=== PATIENT | female | born 1960 | race Caucasian/White ===

== ENCOUNTER 2016-07-17 08:45 | Day surgery (SDC) | payer BC ==
[~2016-07-17 08:45] MED LIST: Lactated Ringers 1,000 ML IV SCH
[2016-07-17] MEDS ORDERED: Citric Acid/Sodium Citrate Solution 30 ML Cup ONE (09:57)
[2016-07-17] MEDS ORDERED: Propofol 200 MG/20 ML SDV ONE (10:00)
[2016-07-17] MEDS ORDERED: fentaNYL 100 MCG/2 ML SDV ONE (10:00)
[2016-07-17] MEDS ORDERED: Citric Acid/Sodium Citrate Solution 30 ML Cup PO ONE (10:04)
[2016-07-17 11:58] VITALS: BP 122/66
--- NOTE | 2016-07-17 16:12 | OR ---
REFERRING DOCTOR: Dr. Maryann Whiting. PREOPERATIVE DIAGNOSIS: Severe gastroesophageal reflux disease symptoms. POSTOPERATIVE DIAGNOSIS: Hiatal hernia without active gastroesophageal reflux disease. No significant gastritis. PROCEDURE PROPOSED: Upper gastrointestinal panendoscopy with antral biopsies. PROCEDURE DONE: Upper gastrointestinal panendoscopy with antral biopsies. INDICATION: This is a 56-year-old female, bothered for several years now with GERD symptoms that seem to be worsening. She cannot lie down without things coming up into her throat. She is having some chronic cough issues. She is presently taking Prilosec twice a day with some relief of symptoms and she has never been gastroscoped, but was felt that she should be evaluated. TECHNIQUE: The patient was placed in left lateral decubitus position. She was sedated with propofol per [employer] AIDE and the flexible video gastroscope was then passed transorally and under visualization advanced well into the duodenum. The duodenum and duodenal bulb was unremarkable. The antrum and body of the stomach looked quite healthy. She did have about a 3 to 4 cm hiatal hernia with the GE junction was well demarcated without signs of active GERD. There was no signs of any stenosis or Schatzki's ring, and the remainder of esophagus was normal. She tolerated the procedure well. FINAL IMPRESSION: 3 to 4 cm hiatal hernia without active gastroesophageal reflux disease. PLAN: This seems like her symptoms are out of proportion to the physical findings. I feel that she should be referred on to GI for pH monitoring and pressure manometry testing to determine if she has a malfunction of the esophagus and to see if she would benefit with a Jorge A fundoplication. SCM: 07/17/2016 10:50:12 MODL: 07/17/2016 15:15:17 /[id number]
== END 2016-07-17 12:00 | disposition home or self-care (01) ==
LOC: VM.SDS 08:45
PROVIDERS: ATTEND Surgery
DX: K29.00 Acute gastritis without bleeding (principal); K44.9 Diaphragmatic hernia without obstruction or gangrene; K21.9 Gastro-esophageal reflux disease without esophagitis; I10 Essential (primary) hypertension; G47.33 Obstructive sleep apnea (adult) (pediatric); E66.9 Obesity, unspecified; E55.9 Vitamin D deficiency, unspecified; E78.5 Hyperlipidemia, unspecified; Z88.8 Allergy status to other drugs, medicaments and biological substances; Z79.899 Other long term (current) drug therapy; F43.23 Adjustment disorder with mixed anxiety and depressed mood
CPT/HCPCS: 43239; A9270; J2704; J3010; J7120

== ENCOUNTER 2022-03-29 10:21 | Day surgery (SDC) | payer BC ==
[~2022-03-29 10:21] MED LIST changes: +Citric Acid/Sodium Citrate Solution 30 ML Cup PO ONE
[2022-03-29] MEDS ORDERED: fentaNYL 100 MCG/2 ML SDV ONE (10:41)
[2022-03-29] MEDS ORDERED: Propofol 200 MG/20 ML SDV ONE ×2 (10:41→11:45)
[2022-03-29 12:39] VITALS: BP 136/76; PULSE 58
== END 2022-03-29 13:20 | disposition home or self-care (01) ==
LOC: VM.SDS 10:21
PROVIDERS: ATTEND Family Medicine
DX: Z12.11 Encounter for screening for malignant neoplasm of colon (principal); K57.30 Diverticulosis of large intestine without perforation or abscess without bleeding; K64.8 Other hemorrhoids; I10 Essential (primary) hypertension; E78.00 Pure hypercholesterolemia, unspecified; E55.9 Vitamin D deficiency, unspecified; K21.9 Gastro-esophageal reflux disease without esophagitis; F41.9 Anxiety disorder, unspecified; Z88.5 Allergy status to narcotic agent; Z86.010 Personal history of colon polyps; Z88.8 Allergy status to other drugs, medicaments and biological substances; Z88.6 Allergy status to analgesic agent; Z98.890 Other specified postprocedural states; Z98.84 Bariatric surgery status; Z79.899 Other long term (current) drug therapy
CPT/HCPCS: 00811; A9270-GY; J2704; J3010; J7120

== ENCOUNTER 2023-08-04 00:50 | Emergency (ER) | payer BC ==
[2023-08-04 07:30] VITALS: BP 104/75; PULSE 77
== END 2023-08-04 01:49 | disposition home or self-care (01) ==
LOC: VM.ED 00:50
DX: R10.13 Epigastric pain (principal); I10 Essential (primary) hypertension; E78.00 Pure hypercholesterolemia, unspecified; K21.9 Gastro-esophageal reflux disease without esophagitis; Z88.5 Allergy status to narcotic agent; Z88.6 Allergy status to analgesic agent; Z88.8 Allergy status to other drugs, medicaments and biological substances; Z79.899 Other long term (current) drug therapy; Z90.49 Acquired absence of other specified parts of digestive tract
CPT/HCPCS: 99283

== ENCOUNTER 2024-03-29 19:27 | Emergency (ER) | payer BC ==
[2024-03-29] MEDS: Ondansetron 4 MG Tab.DIS PO ONE (19:50)
[2024-03-29] MEDS: Ibuprofen 200 MG Tab PO STA (20:02)
[2024-03-29 20:05] VITALS: BP 147/88
[2024-03-29 21:06] VITALS: PULSE 96
== END 2024-03-29 20:45 | disposition left against medical advice (07) ==
LOC: VM.ED 19:27
DX: J10.1 Influenza due to other identified influenza virus with other respiratory manifestations (principal); I10 Essential (primary) hypertension; K21.9 Gastro-esophageal reflux disease without esophagitis; E78.00 Pure hypercholesterolemia, unspecified; Z88.8 Allergy status to other drugs, medicaments and biological substances; Z79.899 Other long term (current) drug therapy; Z90.49 Acquired absence of other specified parts of digestive tract
CPT/HCPCS: 87428-QW; 99283; 99284; A9270-GY